=== PATIENT | male | born 1930 | race Two or more races ===

== ENCOUNTER 2016-12-14 21:44 | Emergency (ER) | payer OTHER, BC ==
[2016-12-14 22:02] VITALS: BP 170/90; PULSE 85; TEMP 98.1; BMI 23.3
--- NOTE | 2016-12-14 22:03 | PDOC ---
History of Present Illness - General Chief Complaint: Urinary Problem Stated Complaint: URINARY RETENTION Time Seen by Provider: 12/14/16 21:47 History Source: Patient Exam Limitations: No Limitations - History of Present Illness Initial Comments: 12/14/16 21:53 This is a 86-year-old male comes in complaining of acute urinary retention. Patient says he has been unable to urinate since earlier this morning. Patient has history of urinary retention in the past and recently had some sort of bladder procedure approximately a week ago and said since then he has been having gross hematuria however is been able to urinate until today. And then today he was unable to urinate. Prior to my evaluation A Carbajal was placed with approximately 800 mL of grossly bloody urine. Patient denies any fever, chills , abdominal pain, back pain, flank pain or any other complaints at this time. Patient does take or Coumadin. PAST MEDICAL HISTORY: no significant history PAST SURGICAL HISTORY: no significant history FAMILY HISTORY: no pertinant history SOCIAL HISTORY: Pt lives with family and is employed. MEDICATIONS: reviewed ALLERGIES: As per nursing notes Review of Systems General: No fevers or chills, no weakness, no weight loss HEENT: No change in vision. No sore throat,. No ear pain CardioVascular: No chest pain or shortness of breath Respiratory:No cough, or wheezing. Gastrointestinal: no nausea, vomitting, diarrhea or constipation, No rectal bleeding Genitourinary: Hematuria and urinary retention as per history of present illness Musculoskeletal: No joint or muscle pain or swelling Neurologic: No headache, vertigo, dizziness or loss of consciousness Psychiatric: nor depression Skin: No rashes or easy bruising Endocrine: no increased thirst or abnormal weight change Allergic: no skin or latex allergy All other systems reviewed and normal GENERAL: The patient is awake, alert, and fully oriented, in no acute distress. HEAD: Normal with no signs of trauma. EYES: Pupils equal, round and reactive to light, extraocular movements intact, sclera anicteric, conjunctiva clear. EXTREMITIES: Normal range of motion, no edema. ABDOMEN: No tenderness on palpation, there is no back or flank tenderness on palpation. NEUROLOGICAL: Normal speech, normal gait. PSYCH: Normal mood, normal affect. SKIN: Warm, Dry, normal turgor, no rashes or lesions noted. Assessment plan: This is an 86-year-old male with acute urinary retention who had approximately 850 mL of urine in his bladder on bladder scan and a Carbajal was placed which was able to drain the bladder. Patient had a urinalysis sent that shows hematuria as well as pyuria elevated white cells. Patient started on Cipro given first dose in the ER and will continue it for 7 days. Patient discharged home with a leg bag and will follow-up with his urologist on Friday. Patient was on Bactrim so he was told to stop it as it appears that it is not effective. Past History - Past Medical History Allergies/Adverse Reactions: Allergies Allergy/AdvReac Type Severity Reaction Status Date / Time No Known Allergies Allergy Verified 10/05/16 12:09 Home Medications: Ambulatory Orders Timolol [Betimol] 10 ml OU BID 05/23/12 Warfarin Na [Coumadin -] 5 mg PO HS 05/23/12 Metoprolol Succinate [Toprol XL -] 100 mg PO DAILY 09/25/12 Ciprofloxacin [Cipro (Restricted To Id)] 250 mg PO BID #14 tablet 12/14/16 Finasteride 5 mg PO DAILY 12/14/16 Oxycodone HCl/Acetaminophen [Percocet 5-325 mg Tablet] 1 - 2 tab PO Q6H PRN Phenazopyridine HCl 200 mg PO PRN PRN 12/14/16 Sulfamethoxazole/Trimethoprim [Bactrim Ds Tablet] 1 each PO BID 12/14/16 Tamsulosin HCl 0.4 mg PO DAILY 12/14/16 Anemia: No Asthma: No Cancer: No Cardiac Disorders: Yes (ATRIAL FIBRILLATION) CVA: No COPD: No CHF: No Dementia: No Diabetes: No GI Disorders: Yes (COLONIC POLYPS) Disorders: Yes (UTI) HTN: Yes Hypercholesterolemia: No Seizures: No Thyroid Disease: No - Surgical History Abdominal Surgery: No Appendectomy: No Cardiac Surgery: No Cholecystectomy: No Lung Surgery: No Neurologic Surgery: No Orthopedic Surgery: No - Psycho/Social/Smoking Cessation Hx Anxiety: No Suicidal Ideation: No Smoking Status: No Smoking History: Unknown if ever smoked Have you smoked in the past 12 months: No Number of Cigarettes Smoked Daily: 0 If you are a former smoker, when did you quit?: 50 YEARS Hx Alcohol Use: No Drug/Substance Use Hx: No Substance Use Type: Alcohol Hx Substance Use Treatment: No *DC/Admit/Observation/Transfer Diagnosis at time of Disposition: Acute urinary retention, Hematuria, Cystitis - Discharge Dispostion Disposition: HOME Condition at time of disposition: Stable Admit: No - Prescriptions Prescriptions: Ciprofloxacin [Cipro (Restricted To Id)] 250 mg PO BID #14 tablet - Referrals Referrals: Ricki Samuel MD [Primary Care Provider] - - Patient Instructions Additional Instructions: Wear the leg bag until you see your urologist. Your urine evaluation did show that you most likely due to have a mild infection in the urine so you are being started on an antibiotic. He will take Cipro twice a day for for the next 7 days. Stop taking the bactrim as it appears that it isn't preventing infections. Return to the emergency department immediately with ANY new, persistent or worsening symptoms. Continue any medications as previously prescribed by your physician. You should follow up with your primary doctor as soon as possible regarding today's emergency department visit. . Please make sure your doctor reviews the results of your emergency evaluation. Thank you for coming to the Emergency Department today for your care. It was a pleasure to see you today. Please note that your evaluation is INCOMPLETE until you follow-up with your doctor.
[2016-12-14 22:28] LABS: URINE APPEARANCE Cloudy; URINE BILIRUBIN 3+ (NEGATIVE); URINE GLUCOSE (UA) Trace (NEGATIVE); URINE KETONE 1+ (NEGATIVE); URINE NITRITE Positive (NEGATIVE); URINE UROBILINOGEN 2.0 E.U/dl (0.2-1.0)
[2016-12-14 22:30] LABS: URINE BLOOD 3+ (NEGATIVE); URINE LEUK ESTERASE 3+ (NEGATIVE); URINE PROTEIN 3+ (NEGATIVE)
[2016-12-14 22:31] LABS: URINE BACTERIA FEW /hpf (NEGATIVE); URINE COLOR BROWN; URINE RBC >100 /hpf (0-3)
[2016-12-14] MEDS ORDERED: CIPROFLOXACIN 500 MG TABLET (RESTRICTED TO ID) PO ONE (22:38)
[2016-12-14] MEDS ORDERED: CIPROFLOXACIN 250 MG TABLET (RESTRICTED TO ID) PO ONE (22:51)
== END 2016-12-14 23:00 | disposition home or self-care (01) ==
LOC: FER 21:44
DX: N30.91 Cystitis, unspecified with hematuria (principal); R33.9 Retention of urine, unspecified; Z87.891 Personal history of nicotine dependence
CPT/HCPCS: 81003; 81015; 87086; 99282-25

== ENCOUNTER 2016-12-16 23:24 | Emergency (ER) | payer OTHER, BC ==
--- NOTE | 2016-12-16 23:28 | PDOC ---
History of Present Illness - General Chief Complaint: Urinary Problem Stated Complaint: PAIN FROM CATHETER Time Seen by Provider: 12/16/16 23:27 History Source: Patient Exam Limitations: No Limitations - History of Present Illness Initial Comments: 12/16/16 23:32 This is a 86-year-old male who comes in complaining of severe pain in the penis secondary to a catheter that isn't draining. Patient was here 2 days ago and seen by me and the had a Barajas placed for gross hematuria. Patient had a bladder procedure and has had a catheter into the mentally since then. Patient said that he went to his urologist today who evaluated him and changed his catheter. Patient then went home and the catheter was clogged went back to the urologist who irrigated it and sent him home again. Patient now comes in here saying the catheter is again clogged. PAST MEDICAL HISTORY: no significant history PAST SURGICAL HISTORY: no significant history FAMILY HISTORY: no pertinant history SOCIAL HISTORY: Pt lives with family and is employed. MEDICATIONS: reviewed ALLERGIES: As per nursing notes Review of Systems General: No fevers or chills, no weakness, no weight loss HEENT: No change in vision. No sore throat,. No ear pain CardioVascular: No chest pain or shortness of breath Respiratory:No cough, or wheezing. Gastrointestinal: no nausea, vomitting, diarrhea or constipation, No rectal bleeding Genitourinary: No dysuria, hematuria, or frequency Musculoskeletal: No joint or muscle pain or swelling Neurologic: No headache, vertigo, dizziness or loss of consciousness Psychiatric: nor depression Skin: No rashes or easy bruising Endocrine: no increased thirst or abnormal weight change Allergic: no skin or latex allergy All other systems reviewed and normal GENERAL: The patient is awake, alert, and fully oriented, in no acute distress. HEAD: Normal with no signs of trauma. EYES: Pupils equal, round and reactive to light, extraocular movements intact, sclera anicteric, conjunctiva clear. EXTREMITIES: Normal range of motion, no edema. NEUROLOGICAL: Normal speech, normal gait. PSYCH: Normal mood, normal affect. SKIN: Warm, Dry, normal turgor, no rashes or lesions noted. 12/17/16 00:06 The Barajas stopped draining so I irrigated the barajas again with multiple clots removed. Barajas placed to leg bag and patient discharged will follow-up with his urologist patient is already on Cipro. Past History - Past Medical History Allergies/Adverse Reactions: Allergies Allergy/AdvReac Type Severity Reaction Status Date / Time No Known Allergies Allergy Verified 10/05/16 12:09 Home Medications: Ambulatory Orders Timolol [Betimol] 10 ml OU BID 05/23/12 Warfarin Na [Coumadin -] 5 mg PO HS 05/23/12 Metoprolol Succinate [Toprol XL -] 100 mg PO DAILY 09/25/12 Ciprofloxacin [Cipro (Restricted To Id)] 250 mg PO BID #14 tablet 12/14/16 Finasteride 5 mg PO DAILY 12/14/16 Oxycodone HCl/Acetaminophen [Percocet 5-325 mg Tablet] 1 - 2 tab PO Q6H PRN Phenazopyridine HCl 200 mg PO PRN PRN 12/14/16 Sulfamethoxazole/Trimethoprim [Bactrim Ds Tablet] 1 each PO BID 12/14/16 Tamsulosin HCl 0.4 mg PO DAILY 12/14/16 Anemia: No Asthma: No Cancer: No Cardiac Disorders: Yes (ATRIAL FIBRILLATION) CVA: No COPD: No CHF: No Dementia: No Diabetes: No GI Disorders: Yes (COLONIC POLYPS) Disorders: Yes (UTI) HTN: Yes Hypercholesterolemia: No Seizures: No Thyroid Disease: No - Surgical History Abdominal Surgery: No Appendectomy: No Cardiac Surgery: No Cholecystectomy: No Lung Surgery: No Neurologic Surgery: No Orthopedic Surgery: No - Psycho/Social/Smoking Cessation Hx Anxiety: No Suicidal Ideation: No Smoking Status: No Smoking History: Unknown if ever smoked Have you smoked in the past 12 months: No Number of Cigarettes Smoked Daily: 0 If you are a former smoker, when did you quit?: 50 YEARS Hx Alcohol Use: No Drug/Substance Use Hx: No Substance Use Type: Alcohol Hx Substance Use Treatment: No *DC/Admit/Observation/Transfer Diagnosis at time of Disposition: Acute urinary retention - Discharge Dispostion Disposition: HOME Condition at time of disposition: Stable Admit: No - Patient Instructions Additional Instructions: Leave the Barajas in place and empty the leg bag as needed. Continue to take all your medications included your Cipro. Call your urologist in the morning and let him know you were here and follow-up with him. Return to the emergency department immediately with ANY new, persistent or worsening symptoms. Continue any medications as previously prescribed by your physician. You should follow up with your primary doctor as soon as possible regarding today's emergency department visit. . Please make sure your doctor reviews the results of your emergency evaluation. Thank you for coming to the Emergency Department today for your care. It was a pleasure to see you today. Please note that your evaluation is INCOMPLETE until you follow-up with your doctor.
[2016-12-16 23:52] VITALS: BP 170/88; PULSE 76; TEMP 97.5; BMI 24.3
== END 2016-12-17 00:29 | disposition home or self-care (01) ==
LOC: FER 23:24
PROC: 0T9B70Z Drainage of Bladder with Drainage Device, Via Natural or Artificial Opening (ICD-10-PCS; principal; 2016-12-16)
DX: T83.098A Other mechanical complication of other urinary catheter, initial encounter (principal); R33.8 Other retention of urine; I10 Essential (primary) hypertension; N39.0 Urinary tract infection, site not specified; Z87.891 Personal history of nicotine dependence; X58.XXXA Exposure to other specified factors, initial encounter; Y93.89 Activity, other specified
CPT/HCPCS: 51702; 99282-25

== ENCOUNTER 2017-02-14 11:29 | Day surgery (SDC) | payer OTHER, BC ==
[2017-02-13 11:12] VITALS: BMI 24.0
[2017-02-14 12:11] LABS: INR 1.59 (0.82-1.09); PROTHROMBIN TIME (PATIENT) 17.6 SEC (9.98-11.88)
[2017-02-14 12:13] VITALS: BP 133/81; PULSE 83; TEMP 98.1
[2017-02-14 12:14] LABS: ACTIVATED PTT 35.2 SECONDS (26.9-34.4)
== END 2017-02-14 13:53 | disposition home or self-care (01) ==
LOC: JASU-SURG 11:29
PROVIDERS: ATTEND Urology
PROC: 0WP Anatomical Regions, General, Removal (ICD-10-PCS; principal; 2017-02-14)
DX: Z53.8 Procedure and treatment not carried out for other reasons (principal)
CPT/HCPCS: 36415; 85610; 85730

== ENCOUNTER 2017-02-17 06:06 | Day surgery (SDC) | payer OTHER, BC ==
[2017-02-14 14:56] VITALS: BMI 24.0
[~2017-02-17 06:06] MED LIST: BUPIVACAINE HCL/PF 0.5% (5MG/ML) 10 ML VIAL IJ ONE; ceFAZolin SODIUM 1 GM VIAL IVPB ONE
[2017-02-17 06:53] LABS: INR 1.15 (0.82-1.09); PROTHROMBIN TIME (PATIENT) 12.7 SEC (9.98-11.88)
[2017-02-17 06:55] LABS: ACTIVATED PTT 31.5 SECONDS (26.9-34.4)
[2017-02-17] MEDS ORDERED: ePHEDrine SULFATE 50 MG/1 ML AMPULE ONE (07:14)
[2017-02-17] MEDS ORDERED: MIDAZOLAM HCL 2 MG/2 ML SINGLE DOSE VIAL ONE (07:14)
[2017-02-17] MEDS ORDERED: SUCCINYLCHOLINE CHLORIDE 200 MG/10 ML VIAL ONE (07:14)
[2017-02-17] MEDS ORDERED: PROPOFOL 20 ML ONE ×3 (07:14)
[2017-02-17] MEDS ORDERED: BUPIVACAINE HCL/PF 0.5% (5MG/ML) 10 ML VIAL ONE (07:22)
[2017-02-17] MEDS ORDERED: ceFAZolin SODIUM 1 GM VIAL ONE (08:04)
[2017-02-17] MEDS ORDERED: ceFAZolin SODIUM 1 GM VIAL IVPB ONE (08:11)
[2017-02-17] MEDS ORDERED: DEXTROSE 5%-0.45% SALINE 1,000 ML IV SCH (09:30)
[2017-02-17] MEDS ORDERED: IBUPROFEN 800 MG/8 ML IJ IVPB PRN (09:30)
[2017-02-17] MEDS ORDERED: ACETAMINOPHEN 1000 MG/100 ML VIAL (NON FORMULARY) IVPB ONE (09:31)
[2017-02-17 09:40] VITALS: TEMP 97.8
[2017-02-17] MEDS ORDERED: oxyCODONE HCL 5 MG TABLET PO PRN (11:03)
[2017-02-17] MEDS ORDERED: ONDANSETRON 4 MG/2 ML VIAL IVPUSH PRN (11:03)
[2017-02-17] MEDS ORDERED: LACTATED RINGERS SOLUTION 1,000 ML IV SCH (11:15)
[2017-02-17 14:54] VITALS: BP 101/58; PULSE 62
--- NOTE | 2017-02-18 09:48 | PATH ---
Surgical Pathology Report Patient Name: MARLEE BURGESS Med. Rec. #: [id number] /Age/Gender: 1930 (Age: 86) / M Account: [id number] Location: [facility] SURGICAL Taken: 02/17/2017 Received: 02/17/2017 Reported: 02/18/2017 Physicians: Carlos Martins M.D. Specimen(s) Received PENILE IMPLANT Clinical History Eroded penile implant Final Diagnosis ACUTE CARE CLINICAL NURSE SPECIALIST, PENIS, REMOVAL: PENILE IMPLANT (GROSS ONLY). Electronically Signed Jarvis Houston M.D. Gross Description Received fresh labeled "penile implant," are 5 richmond/white, rubbery and plastic devices, consistent with portions of the penile implant. The specimens range from 4.0-19.5 cm in greatest dimension. Some of the portions display attached tubing. No soft tissue is present. No sections are submitted, gross only. /02/17/2017 saudi02/17/2017
--- NOTE | 2017-04-15 10:50 | OP ---
DATE OF OPERATION: 02/17/2017 PREOPERATIVE DIAGNOSIS: Eroded penile implant. POSTOPERATIVE DIAGNOSIS: Eroded penile implant. PROCEDURE: Excision of penile implant. This included the cylinders, the pump, and the reservoir. SURGEON: Carlos Martins MD ESTIMATED BLOOD LOSS: 25 mL. PREOPERATIVE INDICATIONS: The patient is an 86-year-old male with a previously placed inflatable penile prosthesis. He has been complaining of some urethral burning. 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 He comes to the OR today for excision and removal of the implant. OPERATION: The patient was brought to the OR. Placed on the table in the supine position. Given general anesthesia and IV antibiotics. The groin was prepped and draped sterilely. Timeout was performed. An infrapubic incision was made. The underlying tissues were dissected down to the corpora cavernosa. The implant's entrance into the corpora cavernosa was identified and the corpora were opened. Both cylinders were removed in total. The pump then which was on the right side was then also brought up into the incision, dissected out, and removed. The tube leading to the reservoir was then followed above the pubic bone. The reservoir was deflated and the entire reservoir was also dissected out. The implant was then sent to Pathology for confirmation. Good hemostasis was maintained throughout. The incisions were closed in 3 layers. A Carbajal catheter was left in place. Patient was woken up. Corey [id number]
== END 2017-02-17 15:08 | disposition home or self-care (01) ==
LOC: JASU-SURG 06:06
PROVIDERS: ATTEND Urology
PROC: 0WP Anatomical Regions, General, Removal (ICD-10-PCS; principal; 2017-02-17 07:30)
DX: T83.89XA Other specified complication of genitourinary prosthetic devices, implants and grafts, initial encounter (principal)
CPT/HCPCS: 36415; 85610; 85730; 88300-TC; 94760

== ENCOUNTER 2018-01-13 18:07 | Emergency (ER) | payer OTHER ==
--- NOTE | 2018-01-13 18:10 | PDOC ---
History of Present Illness - General History Source: Patient Exam Limitations: No Limitations <eKri Bender - Last Filed: 01/13/18 18:18> - History of Present Illness Initial Comments: 01/13/18 18:32 The patient is a 87 year old male with a significant PMH of HTN, BPH, A-fib on Coumadin who presents to the emergency department after being near a friend who had a cough three days ago. The patient reports his friend is now hospitalized for this cough and told the patient to take Tamiflu but when he went to the pharmacy today he was unable to obtain Tamiflu. The patient denies any other symptoms but is here with his today who has been complaining of flu-like symptoms. Of note, the patient returned from [facility] on 01/12/18. The patient denies chest pain, shortness of breath, headache and dizziness. Denies fever, chills, nausea, vomit, diarrhea and constipation. Denies dysuria, frequency, urgency and hematuria. Allergies: NKA Past surgical history: knee replacement Social history: Former smoker. No reported alcohol or drug use. PCP: Dr. Samuel <Leny Kilpatrick - Last Filed: 01/13/18 18:42> - General Chief Complaint: RX Refill Stated Complaint: I WANT TAMIFLU, DENIES SYMPTOMS Time Seen by Provider: 01/13/18 18:10 Past History - Past Medical History Anemia: No Asthma: No Cancer: No Cardiac Disorders: Yes (ATRIAL FIBRILLATION) CVA: No COPD: No CHF: No Dementia: No Diabetes: No GI Disorders: Yes (COLONIC POLYPS) Disorders: Yes (UTI) HTN: Yes Hypercholesterolemia: No Seizures: No Thyroid Disease: No - Surgical History Abdominal Surgery: No Appendectomy: No Cardiac Surgery: No Cholecystectomy: No Lung Surgery: No Neurologic Surgery: No Orthopedic Surgery: No - Suicide/Smoking/Psychosocial Hx Smoking Status: No Smoking History: Never smoked Have you smoked in the past 12 months: No Number of Cigarettes Smoked Daily: 0 If you are a former smoker, when did you quit?: 50 YEARS Hx Alcohol Use: Yes (1 DRINK WITH DINNER) Drug/Substance Use Hx: No Substance Use Type: Alcohol Hx Substance Use Treatment: No <Keri Bender - Last Filed: 01/13/18 18:18> <Leny Kilpatrick - Last Filed: 01/13/18 18:42> - Past Medical History Allergies/Adverse Reactions: Allergies Allergy/AdvReac Type Severity Reaction Status Date / Time No Known Allergies Allergy Verified 01/13/18 18:09 Home Medications: Ambulatory Orders Timolol [Betimol] 10 ml OU BID 05/23/12 Warfarin Na [Coumadin -] 5 mg PO HS 05/23/12 Metoprolol Succinate [Toprol XL -] 100 mg PO DAILY 09/25/12 Travoprost [Travatan Z] 5 ml OP HS 02/13/17 Oseltamivir Phosphate [Tamiflu -] 75 mg PO DAILY #10 capsule 01/13/18 Review of Systems - Review of Systems Able to Perform ROS?: Yes Comments:: 01/13/18 18:35 GENERAL/CONSTITUTIONAL: No fever or chills. No weakness. HEAD, EYES, EARS, NOSE AND THROAT: No change in vision. No ear pain or discharge. No sore throat. CARDIOVASCULAR: No chest pain or shortness of breath. RESPIRATORY: No cough, wheezing, or hemoptysis. GASTROINTESTINAL: No nausea, vomiting, diarrhea or constipation. GENITOURINARY: No dysuria, frequency, or change in urination. MUSCULOSKELETAL: No joint or muscle swelling or pain. No neck or back pain. SKIN: No rash NEUROLOGIC: No headache, vertigo, loss of consciousness, or change in strength/ sensation. ENDOCRINE: No increased thirst. No abnormal weight change. HEMATOLOGIC/LYMPHATIC: No anemia, easy bleeding, or history of blood clots. ALLERGIC/IMMUNOLOGIC: No hives or skin allergy. <Leny Kilpatrick - Last Filed: 01/13/18 18:42> *Physical Exam - Vital Signs Last Vital Signs Temp Pulse Resp BP Pulse Ox 0/0 01/13/18 18:09 - Physical Exam Comments: 01/13/18 18:36 GENERAL: Awake, alert, and fully oriented, in no acute distress HEAD: No signs of trauma EYES: PERRLA, EOMI, sclera anicteric, conjunctiva clear ENT: Auricles normal inspection, hearing grossly normal, nares patent, oropharynx clear without exudates. Moist mucosa NECK: Normal ROM, supple, no lymphadenopathy, JVD, or masses LUNGS: Breath sounds equal, clear to auscultation bilaterally. No wheezes, and no crackles HEART: (+) Irregular rate and rhythm (+) Systolic ejection murmur. Normal S1 and S2, no rubs or gallops ABDOMEN: Soft, nontender, normoactive bowel sounds. No guarding, no rebound. No masses EXTREMITIES: Normal range of motion, no edema. No clubbing or cyanosis. No cords, erythema, or tenderness NEUROLOGICAL: Cranial nerves II through XII grossly intact. Normal speech, normal gait SKIN: Warm, Dry, normal turgor, no rashes or lesions noted. <Leny Kilpatrick - Last Filed: 01/13/18 18:42> Medical Decision Making - Medical Decision Making 01/13/18 18:18 Mr Grady is an 87 yo m with a h/o HTN, BPH (h/o ? prostatectomy), Afib on coumadin who presents to the ER with his Pt states that he was in contact with a friend who was recently diagnosed with influenza The patient was told that he should take Tamiflu Patient denies any fever, chills, myalgias, abdominal pain, back pain, flank pain or any other complaints at this time. Will give prescription for prophylactic Tamiflu 75 mg po daily x 10 days Clinical impression: influenza exposure, initial presentation <Keri Bender - Last Filed: 01/13/18 18:18> *DC/Admit/Observation/Transfer - Discharge Dispostion Admit: No <Keri Bender - Last Filed: 01/13/18 18:18> - Attestations Scribe Attestion: 01/13/18 18:36 Documentation prepared by Leny Kilpatrick, acting as medical technologist blood bank for Keri Bender MD. <Leny Kilpatrick - Last Filed: 01/13/18 18:42> Diagnosis at time of Disposition: Influenza - Discharge Dispostion Disposition: HOME Condition at time of disposition: Stable - Prescriptions Prescriptions: Oseltamivir Phosphate [Tamiflu -] 75 mg PO DAILY #10 capsule - Patient Instructions Printed Discharge Instructions: DI for Influenza -- Adult Additional Instructions: Mr Grady Thanks for coming in to the ER Please take Tamiflu as prescribed Monitor for fevers or chills Return to the ER for any cough, shortness of breath, any other concerns or complaints Follow up with your primary care physician within 2-3 days
[2018-01-13 18:12] VITALS: BMI 24.0
[2018-01-13 18:39] VITALS: BP 141/83; PULSE 75; TEMP 97.5
== END 2018-01-13 19:02 | disposition home or self-care (01) ==
LOC: FER 18:07
DX: J11.1 Influenza due to unidentified influenza virus with other respiratory manifestations (principal); I10 Essential (primary) hypertension; N40.0 Benign prostatic hyperplasia without lower urinary tract symptoms; I48.91 Unspecified atrial fibrillation; Z79.01 Long term (current) use of anticoagulants
CPT/HCPCS: 99281-25

== ENCOUNTER 2018-01-18 14:17 | Emergency (ER) | payer OTHER, BC ==
[2018-01-18 14:22] VITALS: BP 156/69; PULSE 65; TEMP 97.5; BMI 26.2
[2018-01-18 14:58] LABS: INR 2.58 (0.82-1.09); PROTHROMBIN TIME (PATIENT) 29.2 SEC (9.98-11.88)
--- NOTE | 2018-01-18 15:43 | PDOC ---
History of Present Illness - General Chief Complaint: Revisit, Lab Variance Stated Complaint: blood work/inr Time Seen by Provider: 01/18/18 14:35 - History of Present Illness Initial Comments: 01/18/18 15:56 CHIEF COMPLAINT: INR HISTORY OF PRESENT ILLNESS: The patient is a 87 year old male with a significant PMH of HTN, BPH, A-fib on Coumadin presents to fast track for INR check. Patient reports that he checks his INR regularly but when he tried to check it today, the machine had broken. He denies ANY symptoms, including bruising, bleeding, skin changes, headache, shortness of breath, palpitations. PAST MEDICAL HISTORY: as per HPI FAMILY HISTORY: Denies SOCIAL HISTORY: Denies tobacco, alcohol, illicit drug use. SURGICAL HISTORY: Denies ALLERGIES: No known drug allergies REVIEW OF SYSTEMS denies all symptoms PHYSICAL EXAM General Appearance: Well-appearing, appropriately dressed. No apparent distress. HEENT: EOMI, PERRLA. No conjunctival pallor. No photophobia, scleral icterus. Respiratory/Chest: Lungs CTAB. Cardiovascular: RRR. S1, S2. Gastrointestinal/Abdominal: Normal bowel sounds. Abdomen soft, non-distended. No tenderness or rebound tenderness. No organomegaly, pulsatile mass, guarding , hernia, hepatomegaly, splenomegaly. Musculoskeletal/Extremities: Normal inspection. FROM of all extremities, normal capillary refill. Pelvis Stable. No CVA tenderness. No tenderness to extremities, pedal edema, swelling, erythema or deformity. Integumentary: Appropriate color, dry, warm. 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 Fully oriented, alert. Appropriate mood/affect. Motor strength 5/5. No appreciable EOM palsy, facial droop or sensory deficit. Past History - Past Medical History Allergies/Adverse Reactions: Allergies Allergy/AdvReac Type Severity Reaction Status Date / Time No Known Allergies Allergy Verified 01/18/18 14:18 Home Medications: Ambulatory Orders Timolol [Betimol] 10 ml OU BID 05/23/12 Warfarin Na [Coumadin -] 5 mg PO HS 05/23/12 Metoprolol Succinate [Toprol XL -] 100 mg PO DAILY 09/25/12 Travoprost [Travatan Z] 5 ml OP HS 02/13/17 Anemia: No Asthma: No Cancer: No Cardiac Disorders: Yes (ATRIAL FIBRILLATION) CVA: No COPD: No CHF: No DVT: No Dementia: No Diabetes: No GI Disorders: Yes (COLONIC POLYPS) Disorders: Yes (UTI) HTN: Yes Hypercholesterolemia: No Seizures: No Thyroid Disease: No - Surgical History Abdominal Surgery: No Appendectomy: No Cardiac Surgery: No Cholecystectomy: No Lung Surgery: No Neurologic Surgery: No Orthopedic Surgery: No - Suicide/Smoking/Psychosocial Hx Smoking Status: No Smoking History: Never smoked Have you smoked in the past 12 months: No Number of Cigarettes Smoked Daily: 0 If you are a former smoker, when did you quit?: 50 YEARS Information on smoking cessation initiated: No Hx Alcohol Use: Yes (1 DRINK WITH DINNER) Drug/Substance Use Hx: No Substance Use Type: Alcohol Hx Substance Use Treatment: No *Physical Exam - Vital Signs Last Vital Signs Temp Pulse Resp BP Pulse Ox 97.5 F L 65 18 156/69 100 01/18/18 14:20 01/18/18 14:20 01/18/18 14:20 01/18/18 14:20 01/18/18 14:20 ED Treatment Course - ADDITIONAL ORDERS Additional order review: Laboratory Results 01/18/18 14:35 PT with INR 29.20 H INR 2.58 H D Medical Decision Making - Medical Decision Making 01/18/18 15:58 The patient is a 87 year old male with a significant PMH of HTN, BPH, A-fib on Coumadin presents to fast track for INR check. INR 2.58, within therapeutic range *DC/Admit/Observation/Transfer Diagnosis at time of Disposition: Anticoagulation monitoring, INR range 2-3 - Discharge Dispostion Disposition: HOME Condition at time of disposition: Stable Admit: No - Referrals Referrals: Ricki Samuel MD [Staff Physician] - - Patient Instructions Printed Discharge Instructions: Warfarin - Post Discharge Activity
== END 2018-01-18 15:57 | disposition home or self-care (01) ==
LOC: JERFT 14:17
DX: Z51.81 Encounter for therapeutic drug level monitoring (principal); Z79.01 Long term (current) use of anticoagulants; I10 Essential (primary) hypertension; I48.91 Unspecified atrial fibrillation; N40.0 Benign prostatic hyperplasia without lower urinary tract symptoms
CPT/HCPCS: 36415; 85610; 99281-25

== ENCOUNTER 2018-03-18 04:27 | Emergency (ER) | payer OTHER, BC ==
[2018-03-18] MEDS ORDERED: SODIUM CHLORIDE FOR INHALATION 3 ML VIAL.NEB IH ONE (04:33)
--- NOTE | 2018-03-18 04:37 | PDOC ---
History of Present Illness - General Chief Complaint: Respiratory Stated Complaint: COUGHING SINCE FRIDAY Time Seen by Provider: 03/18/18 04:31 - History of Present Illness Initial Comments: 03/18/18 04:32 87 M with h/o afib on coumadin, BPH, HTN presenting to ED with cough x 3 days. Pt denies F/C. Endorses dry cough that has been keeping him up at night. Also endorses sore throat and nasal congestion. Denies CP/SOB. Denies leg swelling. Denies recent travel/immobilization. Has had multiple sick contacts at home. Pt states that he took a leftover z-pack at home, with no improvement. Past History - Past Medical History Allergies/Adverse Reactions: Allergies Allergy/AdvReac Type Severity Reaction Status Date / Time No Known Allergies Allergy Verified 03/18/18 04:29 Home Medications: Ambulatory Orders Timolol [Betimol] 10 ml OU BID 05/23/12 Warfarin Na [Coumadin -] 5 mg PO HS 05/23/12 Metoprolol Succinate [Toprol XL -] 100 mg PO DAILY 09/25/12 Travoprost [Travatan Z] 5 ml OP HS 02/13/17 Albuterol Sulfate Inhaler - [Ventolin HFA Inhaler -] 1 - 2 inh PO Q4H #1 inhaler 03/18/18 Prednisone [Prednisone 50 MG TABLETS] 50 mg PO DAILY #4 tablet 03/18/18 Anemia: No Asthma: No Cancer: No Cardiac Disorders: Yes (ATRIAL FIBRILLATION) CVA: No COPD: No CHF: No DVT: No Dementia: No Diabetes: No GI Disorders: Yes (COLONIC POLYPS) Disorders: Yes (UTI) HTN: Yes Hypercholesterolemia: No Seizures: No Thyroid Disease: No - Surgical History Abdominal Surgery: No Appendectomy: No Cardiac Surgery: No Cholecystectomy: No Lung Surgery: No Neurologic Surgery: No Orthopedic Surgery: No - Suicide/Smoking/Psychosocial Hx Smoking Status: No Smoking History: Never smoked Have you smoked in the past 12 months: No Number of Cigarettes Smoked Daily: 0 If you are a former smoker, when did you quit?: 50 YEARS Hx Alcohol Use: Yes (1 DRINK WITH DINNER) Drug/Substance Use Hx: No Substance Use Type: Alcohol Hx Substance Use Treatment: No Review of Systems - Review of Systems Comments:: 03/18/18 04:38 "GENERAL/CONSTITUTIONAL: No fever or chills. No weakness. HEAD, EYES, EARS, NOSE AND THROAT: No change in vision. No ear pain or discharge. + sore throat. CARDIOVASCULAR: No chest pain or shortness of breath. RESPIRATORY: + cough, no wheezing, or hemoptysis. GASTROINTESTINAL: No nausea, vomiting, diarrhea or constipation. GENITOURINARY: No dysuria, frequency, or change in urination. MUSCULOSKELETAL: No joint or muscle swelling or pain. No neck or back pain. SKIN: No rash NEUROLOGIC: No headache, vertigo, loss of consciousness, or change in strength/ sensation. ENDOCRINE: No increased thirst. No abnormal weight change. HEMATOLOGIC/LYMPHATIC: No anemia, easy bleeding, or history of blood clots. ALLERGIC/IMMUNOLOGIC: No hives or skin allergy. " *Physical Exam - Physical Exam Comments: 03/18/18 04:38 "GENERAL: Awake, alert, and fully oriented, in no acute distress. HEAD: No signs of trauma EYES: PERRLA, EOMI, sclera anicteric, conjunctiva clear ENT: + Posterior oropharynx erythematous with exudate NECK: Nontender, no stepoffs, Normal ROM, supple, no lymphadenopathy, JVD, or masses LUNGS: Breath sounds equal, clear to auscultation bilaterally. No wheezes, and no crackles HEART: Regular rate and rhythm, normal S1 and S2, no murmurs, rubs or gallops ABDOMEN: Soft, nontender, normoactive bowel sounds. No guarding, no rebound. No masses EXTREMITIES: Normal range of motion, no edema. No clubbing or cyanosis. No cords, erythema, or tenderness NEUROLOGICAL: Cranial nerves II through XII intact. 5/5 strength and sensation in all extremities, Normal speech, normal gait, normal cerebellar function SKIN: Warm, Dry, normal turgor, no rashes or lesions noted. " ED Treatment Course - RADIOLOGY Radiology Studies Ordered: Category Date Time Status CHEST PA & LAT [RAD] Stat Radiology 03/18/18 04:31 Ordered Medical Decision Making - Medical Decision Making 03/18/18 04:38 87 M with cough, sore throat. Likely viral URI with cough 2/2 postnasal drip. Lungs clear, making PNA less likely. Pt with no SOB or CP and no clinical signs of volume overload, making CHF unlikely. Pt with no PE risk factors. Pt without wheezing on exam but is former smoker so will give trial of nebs. - CXR - Rapid strep and throat culture - Trial of nebulizers 03/18/18 05:58 Rapid strep negative. CXR clear on my read. Pt reassessed s/p nebs - states that he feels significantly better. Cough is much improved. Given pt's response to nebs, pt likely has reactive airway component to cough. Will give short course of prednisone and albuterol pump. Will defer abx as pt does not appear to have PNA. Pt is well appearing, with normal vitals. Clinically stable for DC at this time. I discussed the physical exam findings, ancillary test results and final diagnoses with the patient. I answered all of the patient's questions. The patient was satisfied with the care received and felt comfortable with the discharge plan and treatment plan. The patient agrees to follow up with the primary care physician within 24-72 hours. *DC/Admit/Observation/Transfer Diagnosis at time of Disposition: Cough - Discharge Dispostion Disposition: HOME Condition at time of disposition: Stable - Prescriptions Prescriptions: Albuterol Sulfate Inhaler - [Ventolin HFA Inhaler -] 1 - 2 inh PO Q4H #1 inhaler Prednisone [Prednisone 50 MG TABLETS] 50 mg PO DAILY #4 tablet - Referrals - Patient Instructions Printed Discharge Instructions: DI for Cough -- Adult Additional Instructions: Take the prednisone as prescribed for 4 more days. Use your albuterol inhaler every 4 hours as needed for coughing. If you experience worsening cough, chest pain, shortness of breath, fevers, or any other concerning symptoms, return to the ER immediately. Otherwise follow up with your primary doctor within 1 week for a re-evaluation. - Post Discharge Activity - Attestations Physician Attestion: 03/18/18 06:05 I, Dr. Jeremy Saldaña MD, attest that this document has been prepared under my direction and personally reviewed by me in its entirety. I further attest, that it accurately reflects all work, treatment, procedures and medical decision -making performed by me.
[2018-03-18] MEDS ORDERED: FLUTICASONE PROP 0.05% 16 GM NASAL SPRAY NS ONE (04:45)
[2018-03-18] MEDS ORDERED: ALBUTEROL SO4 2.5/IPRATROPIUM 0.5 INH SOL 3 ML VIAL.NEB. NEB ONE ×2 (04:46→04:53)
[2018-03-18 04:52] VITALS: BP 154/92; PULSE 60; TEMP 97.9; BMI 24.8
[2018-03-18] MEDS ORDERED: predniSONE 20 MG TABLET (UD) PO ONE (05:59)
[2018-03-18] MEDS ORDERED: LOPERAMIDE HCL 2 MG CAPSULE ONE (06:04)
[2018-03-18] MEDS ORDERED: predniSONE 20 MG TABLET (UD) ONE (06:05)
[2018-03-18] MEDS ORDERED: LOPERAMIDE HCL 2 MG CAPSULE PO ONE (06:05)
== END 2018-03-18 06:10 | disposition home or self-care (01) ==
LOC: FER 04:27
PROC: 3E0F7GC Introduction of Other Therapeutic Substance into Respiratory Tract, Via Natural or Artificial Opening (ICD-10-PCS; principal; 2018-03-18)
DX: R05 Cough (principal); I10 Essential (primary) hypertension; I48.91 Unspecified atrial fibrillation; Z79.01 Long term (current) use of anticoagulants
CPT/HCPCS: 71046-TC-FY; 87070; 87430; 94640; 99281-25; J7620

== ENCOUNTER 2018-04-16 09:33 | Emergency (ER) | payer OTHER, BC ==
[2018-04-16 09:48] VITALS: BP 142/70; PULSE 84; TEMP 97.7; BMI 24.7
[2018-04-16] MEDS ORDERED: METHOCARBAMOL 750 MG TAB PO ONE (09:56)
[2018-04-16] MEDS ORDERED: IBUPROFEN 600 MG TABLET (FP) PO ONE (09:56)
--- NOTE | 2018-04-16 10:01 | PDOC ---
History of Present Illness - General Chief Complaint: Back Pain Stated Complaint: BACK PAIN Time Seen by Provider: 04/16/18 09:39 - History of Present Illness Initial Comments: 87 year old male with PMH of AFib, BPH, and TKR presenting with RLB pain for the past two days starting Friday morning after carrying heavy groceries on Friday night. Denies any trauma to the back and states that he has a lot of stiffness and pain when moving in his right lower back. Denies fevers, chills, nausea, vomiting, diarrhea, constipation, or other symptoms. He just saw his urologist and his prostate exam + ancillary testing were not concerning for oncologic pathology. 04/16/18 09:58 Past History - Past Medical History Allergies/Adverse Reactions: Allergies Allergy/AdvReac Type Severity Reaction Status Date / Time No Known Allergies Allergy Verified 04/16/18 09:38 Home Medications: Ambulatory Orders Timolol [Betimol] 10 ml OU BID 05/23/12 Warfarin Na [Coumadin -] 5 mg PO HS 05/23/12 Metoprolol Succinate [Toprol XL -] 100 mg PO DAILY 09/25/12 Travoprost [Travatan Z] 5 ml OP HS 02/13/17 Tamsulosin HCl [Flomax] 0.4 mg PO HS 04/16/18 Anemia: No Asthma: No Cancer: No Cardiac Disorders: Yes (ATRIAL FIBRILLATION) CVA: No COPD: No CHF: No DVT: No Dementia: No Diabetes: No GI Disorders: Yes (COLONIC POLYPS) Disorders: Yes (UTI) HTN: Yes Hypercholesterolemia: No Seizures: No Thyroid Disease: No - Surgical History Abdominal Surgery: No Appendectomy: No Cardiac Surgery: No Cholecystectomy: No Lung Surgery: No Neurologic Surgery: No Orthopedic Surgery: No - Suicide/Smoking/Psychosocial Hx Smoking Status: No Smoking History: Never smoked Have you smoked in the past 12 months: No Number of Cigarettes Smoked Daily: 0 If you are a former smoker, when did you quit?: 50 YEARS Information on smoking cessation initiated: No Hx Alcohol Use: Yes Drug/Substance Use Hx: No Substance Use Type: None Hx Substance Use Treatment: No Review of Systems - Review of Systems Constitutional: No: Chills, Diaphoresis, Fever HEENTM: No: Blurred Vision, Tearing Respiratory: No: Cough, Shortness of Breath, Wheezing Cardiac (ROS): No: Chest Pain, Edema, Irregular Heart Rate ABD/GI: No: Constipated, Diarrhea, Nausea, Poor Appetite, Vomiting : No: Burning, Dysuria, Discharge, Flank Pain, Hematuria Musculoskeletal: Yes: Back Pain, Joint Pain, Muscle Pain. No: Muscle Weakness, Neck Pain Integumentary: No: Bruising, Erythema, Flushing, Lesions, Lumps Neurological: No: Headache, Numbness, Paresthesia, Tingling, Tremors Psychiatric: No: Anxiety, Depression *Physical Exam - Vital Signs Last Vital Signs Temp Pulse Resp BP Pulse Ox 97.7 F 84 16 142/70 98 04/16/18 09:34 04/16/18 09:34 04/16/18 09:34 04/16/18 09:34 04/16/18 09:34 - Physical Exam General Appearance: Yes: Nourished, Appropriately Dressed. No: Apparent Distress HEENT: positive: EOMI, COTY, Normal ENT Inspection, Normal Voice Neck: positive: Trachea midline, Normal Thyroid, Supple. negative: Tender, Rigid Respiratory/Chest: positive: Lungs Clear, Normal Breath Sounds. negative: Chest Tender, Respiratory Distress, Accessory Muscle Use Cardiovascular: positive: Regular Rhythm, Regular Rate Gastrointestinal/Abdominal: positive: Normal Bowel Sounds, Flat, Soft. negative : Tender Musculoskeletal: positive: Normal Inspection, Muscle Spasm. negative: CVA Tenderness, Decreased Range of Motion Extremity: positive: Normal Capillary Refill, Normal Inspection. negative: Normal Range of Motion (pain with bending forward) Integumentary: positive: Normal Color, Dry, Warm (muscle spasm over right lower back between the iliac crest and inferior scapular edge) Neurologic: positive: Fully Oriented, Alert, Normal Mood/Affect, Normal Response , Motor Strength 5/5 Medical Decision Making - Medical Decision Making 87 year old male with acute onset of atraumatic back pain on the morning after carrying some heavy groceries. Likely not spinal stenosis as the pain was worsed with bending forward. Likely not vertebral injury as there was no deformity or TTP. More likely a muscle spasm associated with unusual level of exertion and heavy grocery lifting. Patient declined medications in the ED and was given precautions to avoid strenuous activity for now and to use tylenol for the pain. 04/16/18 10:04 *DC/Admit/Observation/Transfer Diagnosis at time of Disposition: Muscle spasm Back pain Qualifiers: Back pain location: low back pain Chronicity: acute Back pain laterality: right Sciatica presence: without sciatica Qualified Code(s): M54.5 - Low back pain - Discharge Dispostion Disposition: HOME Condition at time of disposition: Good Decision to Admit order: No - Referrals Referrals: Liang Dobbins MD [Primary Care Provider] - - Patient Instructions Printed Discharge Instructions: DI for Back Spasm Additional Instructions: You likely have a spasm of your back. Please avoid heavy lifting or bending for at least a week. Please stay active and keep moving but do not over exert yourself. Please do not stay bed bound as that could worsen your condition. Please follow up with Dr. Dobbins within the week. please return to the Ed if you have new or worsening symptoms. - Post Discharge Activity
--- NOTE | 2018-04-16 10:06 | PDOC ---
Attending Attestation - Resident Resident Name: Edward Dietz - ED Attending Attestation I have performed the following: I have examined & evaluated the patient, The case was reviewed & discussed with the resident, I agree w/resident's findings & plan, Exceptions are as noted - HPI HPI: 04/16/18 10:03 87 year old M c/ hx of afib on coumadin, HTN, BPH, arthritis p/w left lower back spasm. 2 days ago, pt was lifting a heavy box and walked up a flight of stairs. The following day, noted left lower back spasm but no midline tenderness. No urinary or bowel symptoms. Pain persisted, and worse with flexion and extension. Denies numbness, weakness. Pt's pharmacy cashier had prior instructed the patient to not take any medications including tylenol and motrin as that can interact with coumadin. The patient has been using heat and cold packs but minimal relief. However, pt remains ambulatory. The patient came into the ED for an evaluation. - Physicial Exam PE: 04/16/18 10:05 GENERAL: Awake, alert, and fully oriented, in no acute distress. HEAD: No signs of trauma EYES: PERRLA, EOMI, sclera anicteric, conjunctiva clear ENT: Auricles normal inspection, hearing grossly normal, nares patent NECK: Normal ROM, supple BACK: no midline tenderness. left lower back muscle TTP. EXTREMITIES: Normal range of motion, no edema. No clubbing or cyanosis. No cords, erythema, or tenderness NEUROLOGICAL: Cranial nerves II through XII grossly intact. Normal speech, normal gait SKIN: Warm, Dry, normal turgor, no rashes or lesions noted. - Medical Decision Making 04/16/18 10:05 Vital Signs Temp Pulse Resp BP Pulse Ox 97.7 F 84 16 142/70 98 04/16/18 09:34 04/16/18 09:34 04/16/18 09:34 04/16/18 09:34 04/16/18 09:34 Findings are consistent with lower back spasm. No red flags on patient's history or physical exam. I did discuss symptom alleviation options including tylenol and motrin. However, pt reports to me that he came into the ED because he was concerned that this was something other than a back spasm. Once I had stated that this is very likely to be back spasm, the patient was relieved and grateful and declines any pain medications. I instructed the patient to maintain activity as tolerated and to follow up with his PMD
== END 2018-04-16 10:12 | disposition home or self-care (01) ==
LOC: FER 09:33
DX: M62.830 Muscle spasm of back (principal); M54.5 Low back pain; Z87.891 Personal history of nicotine dependence; I48.91 Unspecified atrial fibrillation; N40.0 Benign prostatic hyperplasia without lower urinary tract symptoms
CPT/HCPCS: 99282-25

== ENCOUNTER 2020-06-15 05:48 | Emergency (ER) | payer OTHER, BC ==
--- NOTE | 2020-06-15 05:52 | PDOC ---
History of Present Illness - General Chief Complaint: Diarrhea Stated Complaint: "I have been having diarrhea" Time Seen by Provider: 06/15/20 05:51 - History of Present Illness Initial Comments: 06/15/20 06:14 This 89-year-old man with a history of A. fib (treated with Eliquis), HTN, BPH, chronic intermittent diarrhea presents for evaluation of a left groin mass that he felt this morning. Patient awakened early this morning with episode of loose stool (according to his likely related to dietary indiscretion). He had no significant abdominal pain, nausea/vomiting, fever/chills, blood in stool. He did, however notice a nonpainful swelling in his left inguinal region. No previous history of this swelling or any other abdominal wall/inguinal hernia. Patient has a urologist () whom he last saw approximately 6 months ago. He is also followed by Dr. Toussaint for his chronic intermittent diarrhea and stool culture is currently pending. Medications as noted below No known allergies Past History - Medical History Allergies/Adverse Reactions: Allergies Allergy/AdvReac Type Severity Reaction Status Date / Time No Known Allergies Allergy Verified 06/15/20 06:01 Home Medications: Ambulatory Orders Metoprolol Succinate [Toprol XL -] 100 mg PO DAILY 09/25/12 Tamsulosin HCl [Flomax] 0.4 mg PO HS 04/16/18 Apixaban [Eliquis] 2.5 mg PO DAILY 06/15/20 Donepezil HCl 5 mg PO DAILY 06/15/20 Anemia: No Asthma: No Cancer: No Cardiac Disorders: Yes (ATRIAL FIBRILLATION) CVA: No COPD: No CHF: No DVT: No Dementia: No Diabetes: No GI Disorders: Yes (COLONIC POLYPS) Disorders: Yes (UTI) HTN: Yes Hypercholesterolemia: No Seizures: No Thyroid Disease: No - Surgical History Abdominal Surgery: No Appendectomy: No Cardiac Surgery: No Cholecystectomy: No Lung Surgery: No Neurologic Surgery: No Orthopedic Surgery: No - Psycho-Social/Smoking History Smoking Status: No Smoking History: Never smoked Have you smoked in the past 12 months: No Number of Cigarettes Smoked Daily: 0 If you are a former smoker, when did you quit?: 50 YEARS Review of Systems - Review of Systems Able to Perform ROS?: Yes Comments:: 12 point review of systems is negative except for what is noted in the history of present illness *Physical Exam - Physical Exam GENERAL: Adult male, alert and oriented x3, no acute distress HEAD: Normal with no signs of trauma. EYES: PERRLA, EOMI, sclera anicteric, conjunctiva clear. ENT: Ears normal, nares patent, oropharynx clear without exudates. Moist mucous membranes. NECK: Normal range of motion, supple without lymphadenopathy, JVD, or masses. LUNGS: Breath sounds equal, clear to auscultation bilaterally. No wheezes, and no crackles. HEART:Regular rate and rhythm, normal S1 and S2 without murmur, rub or gallop. ABDOMEN:.normal bowel sounds No guarding,tenderness or rebound.No masses No distention. Left inguinal region-minimal, reducible, nontender hernia Right inguinal region-no wall weakness or hernia palpable No other scrotal or inguinal abnormalities present EXTREMITIES: Normal range of motion, no edema. No clubbing or cyanosis. No erythema, or tenderness. NEUROLOGICAL: Cranial nerves II through XII grossly intact. Normal speech. No focal neurological deficits. ED Progress Note - Progress Note Progress Note: As noted above, this 89-year-old man with a history of chronic intermittent diarrhea, as well as HTN, BPH and atrial fibrillation presents for evaluation of a nonpainful small mass that he felt in his left inguinal region this morning. No previous history of inguinal hernia. Exam as noted. Clinical impression: Very small, reducible hernia felt in the left inguinal region. No tenderness present. Patient should follow-up with his urologist,Dr Martins. If he has pain in the area of the mass or any generalized abdominal discomfort, he should return to the ER immediately. Also, he should follow-up with Dr. Toussaint regarding his s tool culture and return to the ER if he has nausea/vomiting or fever. Discharge - Discharge Information Problems reviewed: Yes Clinical Impression/Diagnosis: Inguinal swelling, History of diarrhea Condition: Stable Disposition: HOME - Follow up/Referral Referrals: Carlos Martins MD [Staff Physician] - - Patient Discharge Instructions Patient Printed Discharge Instructions: DI for Groin Hernia Additional Instructions: Return to ER if you have persistent painful lump in your groin Call Dr. Martins and arrange for follow-up appointment Follow-up with Dr. Toussaint as planned for stool culture results as planned - Post Discharge Activity
[2020-06-15 05:56] VITALS: BP 157/81; PULSE 68; TEMP 98; BMI 10.1
== END 2020-06-15 06:15 | disposition home or self-care (01) ==
LOC: FER 05:48
DX: R19.09 Other intra-abdominal and pelvic swelling, mass and lump (principal); Z87.19 Personal history of other diseases of the digestive system
CPT/HCPCS: 99282-25

== ENCOUNTER 2021-04-10 10:20 | Emergency (ER) | payer OTHER, BC ==
[2021-04-10 10:38] VITALS: BP 147/88; PULSE 75; TEMP 98; BMI 21.4
== END 2021-04-10 10:55 | disposition home or self-care (01) ==
LOC: FER 10:20
DX: R52 Pain, unspecified (principal)
CPT/HCPCS: 93005; 99283-25

== ENCOUNTER 2021-04-12 01:34 | Emergency (ER) | payer OTHER, BC ==
[2021-04-12 01:50] VITALS: BP 157/90; PULSE 80; TEMP 98.8; BMI 50.4
[2021-04-12] MEDS ORDERED: LORazepam 1 MG TABLET PO ONE (03:05)
[2021-04-12] MEDS ORDERED: LORazepam 0.5 MG TABLET ONE (03:06)
[2021-04-12] MEDS ORDERED: KETOROLAC TROMETHAMINE 30 MG/1 ML VIAL IM ONE (04:01)
[2021-04-12] MEDS ORDERED: KETOROLAC TROMETHAMINE 30 MG/1 ML VIAL ONE (04:03)
== END 2021-04-12 04:42 | disposition home or self-care (01) ==
LOC: FER 01:34
PROC: 3E0233Z Introduction of Anti-inflammatory into Muscle, Percutaneous Approach (ICD-10-PCS; principal; 2021-04-12)
DX: M62.838 Other muscle spasm (principal); R10.84 Generalized abdominal pain
CPT/HCPCS: 74176-TC; 99284-25

== ENCOUNTER 2021-07-02 10:13 | Inpatient (IN) | payer OTHER, BC ==
[2021-07-02 12:21] LABS: BASO % 0.2 % (0-2.0); EOS % 0.8 % (0-4.5); HEMATOCRIT 38.6 % (35.4-49); HEMOGLOBIN 13.4 GM/dL (11.7-16.9); LYMPH % 12.2 % (8-40); MCH 31.7 pg (25.7-33.7); MCHC 34.7 g/dl (32.0-35.9); MEAN CELL VOLUME 91.5 fl (80-96); MEAN PLT VOLUME 8.4 fl (7.5-11.1); MONO % 6.5 % (3.8-10.2); NEUT % 80.3 % (42.8-82.8); PLATELET COUNT 281 10^3/uL (134-434); RBC 4.22 M/mm3 (4.00-5.60); RDW 14.3 % (11.9-15.9); WHITE BLOOD COUNT 9.4 K/mm3 (4.0-10.0)
[2021-07-02 12:28] LABS: INR 1.11 (0.83-1.09); PROTHROMBIN TIME (PATIENT) 13.4 SEC (9.7-13.0)
[2021-07-02 12:31] LABS: ACTIVATED PTT 34.8 SECONDS (25.2-36.5)
[2021-07-02 12:37] LABS: CHLORIDE 104 mmol/L (98-107); SODIUM 137 mmol/L (136-145)
[2021-07-02 12:39] LABS: CALCIUM 8.6 mg/dL (8.5-10.1)
[2021-07-02 12:40] LABS: ALBUMIN 3.9 g/dl (3.4-5.0); ANION GAP 6 MMOL/L (8-16); BLOOD UREA NITROGEN 18.4 mg/dL (7-18); CO2 27 mmol/L (21-32); GLUCOSE,RANDOM 100 mg/dL (74-106)
[2021-07-02 12:43] LABS: CREATININE 0.8 mg/dL (0.55-1.3); SGOT/AST 31 U/L (15-37)
[2021-07-02 12:44] LABS: BILIRUBIN,TOTAL 0.6 mg/dL (0.2-1); TOT PROT 7.3 g/dl (6.4-8.2)
[2021-07-02 12:46] LABS: ALK PHOS 163 U/L (45-117)
[2021-07-02 12:56] LABS: SGPT/ALT 33 U/L (13-61)
[2021-07-02 15:17] LABS: URINE APPEARANCE CLEAR; URINE BILIRUBIN NEGATIVE (NEGATIVE); URINE COLOR YELLOW; URINE GLUCOSE (UA) NEGATIVE (NEGATIVE); URINE KETONE NEGATIVE (NEGATIVE); URINE LEUK ESTERASE NEGATIVE (NEGATIVE); URINE NITRITE NEGATIVE (NEGATIVE); URINE PROTEIN NEGATIVE (NEGATIVE); URINE UROBILINOGEN 0.2 mg/dL (0.2-1.0)
[2021-07-02] MEDS ORDERED: QUEtiapine FUMARATE 50 MG TABLET PO ONE (18:44)
[2021-07-02] MEDS ORDERED: QUEtiapine FUMARATE 25 MG TABLET ONE (19:09)
[2021-07-03 04:40] VITALS: BMI 19.8
[2021-07-03 09:07] LABS: BASO % 0.8 % (0-2.0); EOS % 0.7 % (0-4.5); HEMATOCRIT 36.3 % (35.4-49); HEMOGLOBIN 12.7 GM/dL (11.7-16.9); LYMPH % 14.3 % (8-40); MCH 31.3 pg (25.7-33.7); MEAN CELL VOLUME 89.6 fl (80-96); MEAN PLT VOLUME 8.4 fl (7.5-11.1); MONO % 7.6 % (3.8-10.2); NEUT % 76.6 % (42.8-82.8); PLATELET COUNT 275 10^3/uL (134-434); RBC 4.05 M/mm3 (4.00-5.60); RDW 14.7 % (11.9-15.9); WHITE BLOOD COUNT 9.5 K/mm3 (4.0-10.0)
[2021-07-03 09:26] LABS: ALBUMIN 3.3 g/dl (3.4-5.0); BLOOD UREA NITROGEN 17.6 mg/dL (7-18); CALCIUM 8.2 mg/dL (8.5-10.1); MAGNESIUM 2.2 mg/dL (1.8-2.4)
[2021-07-03 09:30] LABS: CREATININE 0.7 mg/dL (0.55-1.3); PHOSPHOROUS 3.4 mg/dL (2.5-4.9)
[2021-07-03 09:33] LABS: BILIRUBIN,TOTAL 0.7 mg/dL (0.2-1); TOT PROT 6.6 g/dl (6.4-8.2)
[2021-07-03] MEDS: ESCITALOPRAM OXALATE 10 MG TABLET PO SCH (09:39)
[2021-07-03] MEDS: TAMSULOSIN HCL 0.4 MG CAP PO SCH (09:39)
[2021-07-03] MEDS: DONEPEZIL HCL 5 MG TABLET (FP) PO SCH (09:39)
[2021-07-03] MEDS: FINASTERIDE 5 MG TABLET (FP) PO SCH (09:40)
[2021-07-03] MEDS ORDERED: QUEtiapine FUMARATE 25 MG TABLET PO SCH (15:00)
[2021-07-03] MEDS: DOCUSATE SODIUM 100 MG CAPSULE (FP) PO SCH (21:42)
[2021-07-03] MEDS: SENNOSIDES 8.6MG TABLET (FP) PO SCH (21:42)
[2021-07-03] MEDS: QUEtiapine FUMARATE 50 MG TABLET PO SCH (22:55)
[2021-07-04] MEDS ORDERED: HALOPERIDOL LACTATE 5 MG/ML IM ONE (08:30)
[2021-07-04] MEDS: TAMSULOSIN HCL 0.4 MG CAP PO SCH (15:02)
[2021-07-04] MEDS: DONEPEZIL HCL 5 MG TABLET (FP) PO SCH (15:02)
[2021-07-04] MEDS: TIMOLOL 0.5% OPHTHALMIC SOL 5 ML BOTTLE OU SCH (15:03)
[2021-07-04] MEDS: FINASTERIDE 5 MG TABLET (FP) PO SCH (15:03)
[2021-07-04] MEDS: QUEtiapine FUMARATE 25 MG TABLET PO SCH (15:03)
[2021-07-04] MEDS: ESCITALOPRAM OXALATE 10 MG TABLET PO SCH (15:03)
[2021-07-04] MEDS: ASCORBIC ACID 500 MG TABLET (FP) PO SCH (15:03)
[2021-07-04] MEDS: QUEtiapine FUMARATE 50 MG TABLET PO SCH (21:42)
[2021-07-04] MEDS: SENNOSIDES 8.6MG TABLET (FP) PO SCH (21:42)
[2021-07-04] MEDS: DOCUSATE SODIUM 100 MG CAPSULE (FP) PO SCH (21:42)
[2021-07-05] MEDS: TAMSULOSIN HCL 0.4 MG CAP PO SCH (08:25)
[2021-07-05] MEDS: DONEPEZIL HCL 5 MG TABLET (FP) PO SCH (10:12)
[2021-07-05] MEDS: ESCITALOPRAM OXALATE 10 MG TABLET PO SCH (10:12)
[2021-07-05] MEDS: ASCORBIC ACID 500 MG TABLET (FP) PO SCH (10:12)
[2021-07-05] MEDS: FINASTERIDE 5 MG TABLET (FP) PO SCH (10:12)
[2021-07-05] MEDS: TIMOLOL 0.5% OPHTHALMIC SOL 5 ML BOTTLE OU SCH (10:30)
[2021-07-05] MEDS: QUEtiapine FUMARATE 25 MG TABLET PO SCH (11:07)
[2021-07-05] MEDS: SENNOSIDES 8.6MG TABLET (FP) PO SCH ×2 (20:52→22:00)
[2021-07-05] MEDS: DOCUSATE SODIUM 100 MG CAPSULE (FP) PO SCH ×2 (20:53→22:00)
[2021-07-05] MEDS: QUEtiapine FUMARATE 50 MG TABLET PO SCH ×2 (20:53→22:00)
[2021-07-06] MEDS: TAMSULOSIN HCL 0.4 MG CAP PO SCH (08:56)
[2021-07-06] MEDS: FINASTERIDE 5 MG TABLET (FP) PO SCH (10:15)
[2021-07-06] MEDS: ESCITALOPRAM OXALATE 10 MG TABLET PO SCH (10:15)
[2021-07-06] MEDS: DONEPEZIL HCL 5 MG TABLET (FP) PO SCH (10:15)
[2021-07-06] MEDS: ASCORBIC ACID 500 MG TABLET (FP) PO SCH (10:15)
[2021-07-06] MEDS: TIMOLOL 0.5% OPHTHALMIC SOL 5 ML BOTTLE OU SCH (10:27)
[2021-07-06] MEDS: QUEtiapine FUMARATE 25 MG TABLET PO SCH (10:54)
[2021-07-06] MEDS: SENNOSIDES 8.6MG TABLET (FP) PO SCH (21:03)
[2021-07-06] MEDS: DOCUSATE SODIUM 100 MG CAPSULE (FP) PO SCH (21:03)
[2021-07-06] MEDS: QUEtiapine FUMARATE 50 MG TABLET PO SCH (21:03)
[2021-07-07] MEDS: TAMSULOSIN HCL 0.4 MG CAP PO SCH (08:42)
[2021-07-07] MEDS ORDERED: PT OWN MED DRAWER 7, Y5N ONE (10:38)
[2021-07-07] MEDS: DONEPEZIL HCL 5 MG TABLET (FP) PO SCH (10:54)
[2021-07-07] MEDS: QUEtiapine FUMARATE 25 MG TABLET PO SCH (10:55)
[2021-07-07] MEDS: ESCITALOPRAM OXALATE 10 MG TABLET PO SCH (10:55)
[2021-07-07] MEDS: FINASTERIDE 5 MG TABLET (FP) PO SCH (10:55)
[2021-07-07] MEDS: ASCORBIC ACID 500 MG TABLET (FP) PO SCH (10:56)
[2021-07-07] MEDS: TIMOLOL 0.5% OPHTHALMIC SOL 5 ML BOTTLE OU SCH (11:03)
[2021-07-07] MEDS: SENNOSIDES 8.6MG TABLET (FP) PO SCH (21:03)
[2021-07-07] MEDS: QUEtiapine FUMARATE 50 MG TABLET PO SCH (21:03)
[2021-07-07] MEDS: DOCUSATE SODIUM 100 MG CAPSULE (FP) PO SCH (21:03)
[2021-07-08 05:57] VITALS: BP 141/82; PULSE 78; TEMP 98.2
[2021-07-08] MEDS: TAMSULOSIN HCL 0.4 MG CAP PO SCH (08:37)
[2021-07-08] MEDS: QUEtiapine FUMARATE 25 MG TABLET PO SCH (09:36)
[2021-07-08] MEDS: DONEPEZIL HCL 5 MG TABLET (FP) PO SCH (09:37)
[2021-07-08] MEDS: ASCORBIC ACID 500 MG TABLET (FP) PO SCH (09:37)
[2021-07-08] MEDS: ESCITALOPRAM OXALATE 10 MG TABLET PO SCH (09:37)
[2021-07-08] MEDS: FINASTERIDE 5 MG TABLET (FP) PO SCH (09:37)
[2021-07-08] MEDS: TIMOLOL 0.5% OPHTHALMIC SOL 5 ML BOTTLE OU SCH (09:38)
== END 2021-07-08 13:00 | DRG 312 ==
LOC: JER 10:13 → UNDOADMOB 14:09 → INTOOBSV 14:09 → JERBED 14:09 → J6S 23:52 → OBSVTOIN 07-04 11:09
PROVIDERS: ADMIT Internal Medicine; ATTEND Internal Medicine
DX: I95.1 Orthostatic hypotension (principal); S27.52XA Contusion of thoracic trachea, initial encounter; I48.91 Unspecified atrial fibrillation; I10 Essential (primary) hypertension; N40.0 Benign prostatic hyperplasia without lower urinary tract symptoms; F41.8 Other specified anxiety disorders; F03.90 Unspecified dementia, unspecified severity, without behavioral disturbance, psychotic disturbance, mood disturbance, and anxiety; R41.0 Disorientation, unspecified; W06.XXXA Fall from bed, initial encounter; Y92.092 Bedroom in other non-institutional residence as the place of occurrence of the external cause; Z96.653 Presence of artificial knee joint, bilateral
CPT/HCPCS: 36415; 70450-TC; 71046-TC-FY; 72125-TC; 72128-TC; 72131-TC; 80053; 81003; 82550; 82962; 83735; 84100; 84484; 85025; 85610; 85730; 86850; 86900; 86901; 87086; 87186; 93005; 93010; 97116-GP; 97162-GP; 99285-25; C9803; G0378; U0003; U0005

== ENCOUNTER 2022-02-09 08:17 | Inpatient (IN) | payer OTHER, BC ==
[2022-02-09] MEDS ORDERED: SODIUM CHLORIDE 0.9% 1000 ML INFUS.BAG IV ONE (08:30)
[2022-02-09] MEDS ORDERED: ACETAMINOPHEN 1000 MG/100 ML BAG IVPB ONE (08:48)
[2022-02-09] MEDS ORDERED: PIPERACILLIN/TAZOB 4.5 GM 4.5 GM in DEXTROSE 5%-WATER 100 ML IVPB ONE (08:48)
[2022-02-09] MEDS ORDERED: VANCOMYCIN 1 GM in D5W (PRE-DOCKED) 1,000 MG/250 ML IVPB ONE (08:49)
[2022-02-09 08:54] VITALS: BMI 18.2
[2022-02-09 09:32] LABS: HEMATOCRIT 43.9 % (35.4-49); HEMOGLOBIN 13.8 GM/dL (11.7-16.9); MCHC 31.3 g/dl (32.0-35.9); MEAN CELL VOLUME 95.7 fl (80-96); MEAN PLT VOLUME 10.4 fl (7.5-11.1); PLATELET COUNT 266 10^3/uL (134-434); RBC 4.59 M/mm3 (4.00-5.60); RDW 14.8 % (11.9-15.9)
[2022-02-09] MEDS ORDERED: VANCOMYCIN 1 GRAM (PRE-DOCKED) 1,000 MG/250 ML BAG IVPB ONE (09:33)
[2022-02-09] MEDS ORDERED: PIPERACILLIN/TAZOB 4.5 GM 4.5 GM/100 ML BAG IVPB ONE (09:33)
[2022-02-09] MEDS ORDERED: ACETAMINOPHEN INJECTION 100 ML IVPB ONE (09:33)
[2022-02-09 09:36] LABS: WHITE BLOOD COUNT 55.4 K/mm3 (4.0-10.0)
[2022-02-09 09:38] LABS: INR 1.57 (0.83-1.09); PROTHROMBIN TIME (PATIENT) 18.1 SEC (9.7-13.0)
[2022-02-09 09:40] LABS: ACTIVATED PTT 31.1 SECONDS (25.2-36.5)
[2022-02-09 09:50] LABS: CHLORIDE 109 mmol/L (98-107); SODIUM 147 mmol/L (136-145)
[2022-02-09 09:52] LABS: CALCIUM 8.5 mg/dL (8.5-10.1)
[2022-02-09 09:53] LABS: ALBUMIN 2.5 g/dl (3.4-5.0); BLOOD UREA NITROGEN 27.7 mg/dL (7-18); CO2 15 mmol/L (21-32); GLUCOSE,RANDOM 100 mg/dL (74-106)
[2022-02-09 09:56] LABS: CREATININE 2.5 mg/dL (0.55-1.3); SGPT/ALT 55 U/L (13-61)
[2022-02-09 09:57] LABS: TOT PROT 6.3 g/dl (6.4-8.2)
[2022-02-09 09:58] LABS: BILIRUBIN,TOTAL 0.9 mg/dL (0.2-1)
[2022-02-09 09:59] LABS: ALK PHOS 173 U/L (45-117)
[2022-02-09 10:05] LABS: LACTIC ACID > 15.0 mmol/L (0.4-2.0)
[2022-02-09 10:42] LABS: ANION GAP 23 MMOL/L (8-16)
[2022-02-09 10:59] LABS: SGOT/AST 104 U/L (15-37)
[2022-02-09 11:32] LABS: URINE APPEARANCE Clear; URINE BILIRUBIN 1+ (NEGATIVE); URINE COLOR Yellow; URINE GLUCOSE (UA) Negative (NEGATIVE); URINE KETONE Negative (NEGATIVE); URINE LEUK ESTERASE Negative (NEGATIVE); URINE NITRITE Negative (NEGATIVE); URINE PROTEIN Trace (NEGATIVE)
[2022-02-09] MEDS ORDERED: SODIUM CHLORIDE 1,000 ML IV STA ×3 (11:45→14:58)
[2022-02-09] MEDS ORDERED: MAGNESIUM SULFATE IN WATER 2 GM/50 ML IVPB IVPB ONE (11:48)
[2022-02-09] MEDS: MUPIROCIN 2% TOPICAL OINTMENT FOR DECOLONIZATION NS SCH ×2 (11:50→21:36)
[2022-02-09] MEDS ORDERED: HEPARIN NA (PORCINE) 5,000 UNITS/ML 1ML VIAL SQ SCH (12:00)
[2022-02-09 12:26] LABS: ANISOCYTOSIS 1+; MACROCYTOSIS 0
[2022-02-09 12:31] LABS: ARTERIAL BLD GAS O2 SATURATION 99.4 % (95-98); ARTERIAL BLOOD GAS BASE EXCESS -9.1 mmol/L (-2-2); ARTERIAL BLOOD GAS PO2 198.8 mmHg (80-100); ARTERIAL BLOOD GAS pH 7.384 (7.350-7.450)
[2022-02-09 12:32] LABS: ALLENS TEST POSITIVE
[2022-02-09] MEDS ORDERED: DEXTROSE 5%-WATER 100 ML IVPB ONE (12:44)
[2022-02-09] MEDS ORDERED: PIPERACILLIN/TAZOBACTAM 4.5 GM VIAL IVPB ONE (12:44)
[2022-02-09] MEDS: KCL 10 MEQ IVPB 10 MEQ/100 ML INFUS.BAG IVPB SCH ×3 (12:53→15:15)
[2022-02-09 13:33] LABS: EPI CELLS 16.1 /uL (0-25.1); HYALINE CASTS 5.64 /uL (0-3.1); URINE RBC 47.8 /uL (0-23.9); URINE WBC 35.6 /uL (0-25.8)
[2022-02-09 13:34] LABS: URINE BACTERIA 113.2 /uL (0-1359)
[2022-02-09] MEDS ORDERED: PANTOPRAZOLE SODIUM 40 MG VIAL IVPUSH SCH (13:45)
[2022-02-09] MEDS: PHENYLEPHRINE HCL 50,000 MCG in SODIUM CHLORIDE 500 ML IV SCH (14:40)
[2022-02-09] MEDS ORDERED: LACTATED RINGERS SOLUTION 1,000 ML/1,000 ML INFUS.BAG IV SCH ×2 (15:00→17:15)
[2022-02-09] MEDS ORDERED: NOREPINEPHRINE BITARTRATE 16,000 MCG in SODIUM CHLORIDE 484 ML IV SCH (15:15)
[2022-02-09] MEDS ORDERED: VASOPRESSIN 40 UNITS/100 ML BAG IV SCH (15:30)
[2022-02-09] MEDS: HYDROCORTISONE SOD SUCCINATE 100 MG/2 ML VIAL IVPUSH SCH ×2 (15:54→23:12)
[2022-02-09] MEDS ORDERED: HEPARIN NA (PORCINE) 5,000 UNITS/ML 1ML VIAL IVPUSH PRN ×2 (16:47)
[2022-02-09] MEDS ORDERED: PIPERACILLIN/TAZOBACTAM 2.25 GM VIAL IVPB ONE ×2 (16:50→21:26)
[2022-02-09] MEDS ORDERED: DEXTROSE 5%-WATER - 50 ML IVPB ONE ×2 (16:50→21:26)
[2022-02-09 16:58] LABS: CALCIUM 7.4 mg/dL (8.5-10.1)
[2022-02-09] MEDS: PIPERACILLIN/TAZOB 2.25 GM 2.25 GM in DEXTROSE 5%-WATER - 50 ML IVPB SCH ×2 (16:58→21:36)
[2022-02-09 16:59] LABS: BLOOD UREA NITROGEN 29.5 mg/dL (7-18)
[2022-02-09] MEDS ORDERED: HEPARIN SOD,PORK IN 0.45% NACL 25,000 UNIT/500 ML INFUS.BAG IVPB SCH (17:00)
[2022-02-09 17:02] LABS: CREATININE 2.1 mg/dL (0.55-1.3)
[2022-02-09] MEDS: POTASSIUM CHLORIDE 20 MEQ PREMIX IVPB 100 ML IVPB SCH ×2 (17:15→20:00)
[2022-02-09 18:55] LABS: LACTIC ACID 5.6 mmol/L (0.4-2.0)
[2022-02-09 21:04] LABS: ARTERIAL BLD GAS O2 SATURATION 98.7 % (95-98); ARTERIAL BLOOD GAS BASE EXCESS -9.5 mmol/L (-2-2); ARTERIAL BLOOD GAS PO2 130.6 mmHg (80-100); ARTERIAL BLOOD GAS pH 7.405 (7.350-7.450)
[2022-02-09] MEDS ORDERED: CHLORHEXIDINE GLUCONATE 4% CLEANSER FOR DECOLONIZATION TP SCH (22:00)
[2022-02-09 22:34] VITALS: TEMP 98.7
[2022-02-10 00:49] LABS: ALK PHOS 123 U/L (45-117); ANION GAP 16 MMOL/L (8-16); BILIRUBIN,TOTAL 0.9 mg/dL (0.2-1); BLOOD UREA NITROGEN 33.7 mg/dL (7-18); CHLORIDE 116 mmol/L (98-107); CO2 15 mmol/L (21-32); CREATININE 2.4 mg/dL (0.55-1.3); GLUCOSE,RANDOM 115 mg/dL (74-106); SGOT/AST 293 U/L (15-37); SGPT/ALT 88 U/L (13-61); SODIUM 146 mmol/L (136-145); TOT PROT 5.2 g/dl (6.4-8.2)
[2022-02-10 00:49] LABS: LACTIC ACID 9.3 mmol/L (0.4-2.0)
[2022-02-10] MEDS ORDERED: METOPROLOL TARTRATE 5 MG/5 ML VIAL IVPUSH ONE (00:58)
[2022-02-10] MEDS ORDERED: LACTATED RINGERS SOLUTION 1000 ML INFUS.BAG IV ONE (01:25)
[2022-02-10] MEDS ORDERED: PHENYLEPHRINE HCL 10 MG/1 ML SINGLE DOSE VIAL ONE (01:36)
[2022-02-10] MEDS: PHENYLEPHRINE HCL 50,000 MCG in SODIUM CHLORIDE 500 ML IV SCH (02:18)
[2022-02-10 02:19] VITALS: PULSE 88
[2022-02-10] MEDS ORDERED: FENTANYL IVPB 500 MCG/100 ML BAG IVPB SCH (02:30)
[2022-02-10] MEDS ORDERED: DEXTROSE 5%-WATER - 50 ML IVPB ONE (02:30)
[2022-02-10] MEDS ORDERED: PIPERACILLIN/TAZOBACTAM 2.25 GM VIAL IVPB ONE (02:30)
[2022-02-10] MEDS: PIPERACILLIN/TAZOB 2.25 GM 2.25 GM in DEXTROSE 5%-WATER - 50 ML IVPB SCH (02:52)
[2022-02-10] MEDS ORDERED: DOPAMINE 400 MG/D5W - 400,000 MCG/250 ML INFUS.BAG IVPB SCH (03:15)
[2022-02-10 04:16] LABS: ARTERIAL BLD GAS O2 SATURATION 98.4 % (95-98); ARTERIAL BLOOD GAS PO2 179.3 mmHg (80-100)
[2022-02-10 04:18] VITALS: BP 60/42
[2022-02-10 04:20] LABS: VENT MODE A/C; VENT RATE 14
[2022-02-10 04:22] LABS: ARTERIAL BLOOD GAS pH 6.982 (7.350-7.450)
== END 2022-02-10 07:15 | disposition expired | DRG 871 ==
LOC: JER 08:17 → JERBED 10:29 → JICU 11:23
PROVIDERS: ADMIT Internal Medicine Pulmonary Disease; ATTEND Internal Medicine Pulmonary Disease
PROC: 03HY32Z Insertion of Monitoring Device into Upper Artery, Percutaneous Approach (ICD-10-PCS; 2022-02-09)
PROC: 4A133B1 Monitoring of Arterial Pressure, Peripheral, Percutaneous Approach (ICD-10-PCS; 2022-02-09)
PROC: 4A133J1 Monitoring of Arterial Pulse, Peripheral, Percutaneous Approach (ICD-10-PCS; 2022-02-09)
PROC: 05HM33Z Insertion of Infusion Device into Right Internal Jugular Vein, Percutaneous Approach (ICD-10-PCS; 2022-02-09)
PROC: B543ZZA Ultrasonography of Right Jugular Veins, Guidance (ICD-10-PCS; 2022-02-09)
PROC: 5A1935Z Respiratory Ventilation, Less than 24 Consecutive Hours (ICD-10-PCS; principal; 2022-02-10)
PROC: 0BH17EZ Insertion of Endotracheal Airway into Trachea, Via Natural or Artificial Opening (ICD-10-PCS; 2022-02-10)
PROC: 5A12012 Performance of Cardiac Output, Single, Manual (ICD-10-PCS; 2022-02-10)
DX: A41.9 Sepsis, unspecified organism (principal); R65.21 Severe sepsis with septic shock; J69.0 Pneumonitis due to inhalation of food and vomit; N17.9 Acute kidney failure, unspecified; E87.0 Hyperosmolality and hypernatremia; E87.2 Acidosis; I24.8 Other forms of acute ischemic heart disease; N39.0 Urinary tract infection, site not specified; Z68.1 Body mass index [BMI] 19.9 or less, adult; I10 Essential (primary) hypertension; F03.90 Unspecified dementia, unspecified severity, without behavioral disturbance, psychotic disturbance, mood disturbance, and anxiety; I48.91 Unspecified atrial fibrillation; D72.829 Elevated white blood cell count, unspecified; E87.6 Hypokalemia; N40.0 Benign prostatic hyperplasia without lower urinary tract symptoms; I95.9 Hypotension, unspecified
CPT/HCPCS: 31500; 36415; 36600; 71045-TC-FY; 71250-TC; 74176-TC; 76937; 80048; 80053; 81003; 82272; 82570; 82803; 82962; 83605; 84133; 84156; 84300; 84484; 85025; 85610; 85730; 86850; 86900; 86901; 87040; 87077; 87086; 87186; 87804; 87899; 93005; 93010; 93308; 94002; 99291; C9803-CS; J1644; J3490; U0003; U0005